=== PATIENT | male | born 2000 | race Caucasian/White ===

== ENCOUNTER 2022-02-18 13:26 | Emergency (ER) | payer OTHER, SELFPAY ==
[2022-02-18 13:33] VITALS: BP 147/100; PULSE 84; RESP 18; TEMP 36.7; O2SAT 97; BMI 28.5
--- NOTE | 2022-02-18 13:42 | CRLHL7_ITS ---
For Patients: As a result of the Cures Act, medical imaging exams and procedure reports are released immediately into your electronic medical record. You may view this report before your referring provider. If you have questions, please contact your health care provider. INDICATION: Left hand injury. FINDINGS: Three views of the left hand were obtained. There is a comminuted mildly displaced spiral fracture in the shaft of the 5th metacarpal bone with the fracture involves the distal articular surface. There no other acute fracture seen or dislocation. There is an old chip fracture or ununited ossification center off the ulnar styloid. Impression: Comminuted mildly displaced fracture 5th metacarpal with the fracture line involving the distal articular surface. Dictated by Vitor Jones MD @ 02/18/2022 2:27:49 PM (Electronically Signed)
--- NOTE | 2022-02-18 13:42 | ED.UPPEXIN ---
HPI - Extremity Injury (Upper) General Chief Complaint: Extremity Pain/Injury, Upper Stated Complaint: Left pinky dislocation Time Seen by Provider: 02/18/22 13:29 History of Present Illness HPI narrative: This 21-year-old male comes in with an injury to his left hand and little finger. This occurred prior to arrival when playing rugby. He fell and injured this portion of his left hand. He does not report any other injury. He did not have loss of consciousness. Related Data Home Medications Medication Instructions Recorded Confirmed No Known Home Medications 02/18/22 02/18/22 Allergies Allergy/AdvReac Type Severity Reaction Status Date / Time No Known Drug Allergies Allergy Verified 02/18/22 13:36 Review of Systems Status of ROS: Reports: 10 or more systems reviewed and unremarkable except as noted in History and below Narrative: Constitutional: No fevers, no weight gain or loss. Eyes: No discharge. No vision changes. HENT: No congestion, no sore throat, no ear pain. Cardiovascular: No chest pain, no palpitations. Respiratory: No shortness of breath, no wheezes, no cough. Gastrointestinal: No abdominal pain, no vomiting, no diarrhea. Genitourinary: No dysuria, no hematuria. Musculoskeletal: Left hand and little finger pain and swelling. Skin: No rashes, no pruritis. Neurological: No dizziness, weakness, sensory change, speech change. Endo/Heme/Allergies: No bruising or bleeding. No polydipsia. Pysch: no suicidality, no anxiety, no insomnia. All other systems reviewed and are negative. PFSH PFS Social History Smoking Status: Current some day smoker How often do you have a drink containing alcohol: 2-4 times a month AUDIT-C Alcohol total score: 2 Non-prescribed substance use: marijuana (any form) Exam Narrative: Exam Narrative: Constitutional: Well-developed, well-nourished, no acute distress. HEENT: Normocephalic, atraumatic. Neck: Normal range of motion. Nontender. Supple. Heart: Intact distal pulses. Lungs: No chest discomfort. No wheezes, rhonchi, or rales. Abdomen: Nontender. Back: Normal range of motion. Extremities: Tenderness with swelling along the 5th metatarsal of the left hand and the associated MP joint. Skin: Intact. No rash. Warm. No erythema or pallor. Neurologic: No altered sensation. No weakness. Alert and oriented. Psychiatric: No suicidality. No anxiety or depression. No insomnia. Nursing notes and vitals signs are reviewed. Const: Vital Signs, click to edit/add: Vital Signs - 24 hr 02/18/22 13:33 Temperature 98.1 F Pulse Rate [Pulse Oximeter] 84 Respiratory Rate 18 Blood Pressure [Ri ght Upper Arm] 147/100 H Pulse Oximetry 97 Oxygen Delivery Me thod Room Air Course Vital Signs Vital signs: Initial Vital Signs Temperature 98.1 F 02/18/22 13:33 Temperature Source Temporal Artery Scan 02/18/22 13:33 Pulse Rate 84 02/18/22 13:33 Respiratory Rate 18 02/18/22 13:33 Blood Pressure 147/100 H 02/18/22 13:33 Blood Pressure Mean 115 02/18/22 13:33 Blood Pressure Position Supine 02/18/22 13:33 Pulse Oximetry 97 02/18/22 13:33 Oxygen Delivery Method 02/18/22 13:33 Vital Signs Temperature 98.1 F 02/18/22 13:33 Pulse Rate 84 02/18/22 13:33 Respiratory Rate 18 02/18/22 13:33 Blood Pressure 147/100 H 02/18/22 13:33 Pulse Oximetry 97 02/18/22 13:33 Oxygen Delivery Method 02/18/22 13:33 Temperature 98.1 F 02/18/22 13:33 Pulse Rate 84 02/18/22 13:33 Respiratory Rate 18 02/18/22 13:33 Blood Pressure 147/100 H 02/18/22 13:33 Pulse Oximetry 97 02/18/22 13:33 Oxygen Delivery Method 02/18/22 13:33 MDM - Extremity Injury (Upper) [facility] Narrative Medical decision making narrative: This patient comes in with an injury to his left hand as described above. X-ray imaging shows a comminuted fracture of the 5th metatarsal. The displacement of these bone fragments is minimal. The position appears to me to be rather acceptable also. He was placed in an ulnar gutter splint using Ortho Glass material. Instructions were given regarding splint care. [place] as [place] playing [place] competitively. I advised him to follow-up with orthopedic clinic in his hometown for further evaluation and treatment. Imaging Data XR L hand: Radiologist's impression: Comminuted mildly displaced fracture 5th metacarpal with the fracture line involving the distal articular surface. Discharge Plan Discharge Clinical Impression: Fracture of hand Patient Disposition: Home, Self-Care Condition: Stable Additional Instructions: Wear splint. Follow-up with orthopedic clinic after returning home. Use [id number] medicines as needed and directed. Prescriptions: No Action No Known Home Medications Follow Up/Referrals: Provider,Not a Local [Primary Care Provider] - Stand Alone Forms: [employer] Info Instructions
== END 2022-02-18 14:49 | disposition home or self-care (01) ==
PROVIDERS: Emergency Provider Emergency Medicine Emergency Medical Services
DX: S62.607A Fracture of unspecified phalanx of left little finger, initial encounter for closed fracture (principal); W18.30XA Fall on same level, unspecified, initial encounter; Y93.63 Activity, rugby; Y92.328 Other athletic field as the place of occurrence of the external cause; Y99.8 Other external cause status
CPT/HCPCS: 29125; 73130; 99282; 99283; 99284